=== PATIENT | female | born 1985 | race Caucasian/White ===

== ENCOUNTER 2018-06-05 22:58 | Emergency (ER) | payer MEDICAID ==
[~2018-06-05] VITALS: Ht 154.9 cm; Wt 75.5 kg
[~2018-06-05 22:58] MED LIST: NOCURR
[2018-06-06 02:06] LABS: INFLUENZA TYPE A NEGATIVE FOR TYPE A (NEGATIVE); INFLUENZA TYPE B NEGATIVE FOR TYPE B (NEGATIVE)
[2018-06-06] MEDS ORDERED: IBUPROFEN 600 MG TABLET PO ONE (02:15)
[2018-06-06 03:06] VITALS: BP 124/73
== END 2018-06-06 03:37 | disposition home or self-care (01) ==
LOC: EMS 22:58
DX: J40 Bronchitis, not specified as acute or chronic (principal)
CPT/HCPCS: 87804